=== PATIENT | female | born 1985 | race African-American/Black ===

== ENCOUNTER 2017-04-27 19:23 | Emergency (ER) | payer SELFPAY ==
[~2017-04-27] VITALS: Ht 162.6 cm; Wt 99.8 kg
[2017-04-27 19:40] VITALS: BP 107/47
--- NOTE | 2017-04-27 20:28 | Emergency Room Report ---
History of Present Illness General Chief Complaint: Overdose Source: Patient Present Illness HPI 32YOF BIBEMS with witnessed eating of marijuana edible. Cousin denies patient took ETOH, other drugs Denies other medical problems, medications Denies Tylenol, ASA HPI otherwise limited as patient is sedated from marijuana Allergies: Coded Allergies: No Known Allergies (Unverified , 04/27/17) Patient History Past Medical History: none Past Surgical History: none Pertinent Family History: none Social History: Denies: smoking, alcohol use, drug use Now: No Immunizations: UTD Reviewed Nursing Documentation: PMH: Agreed, PSxH: Agreed Nursing Documentation-PMH Past Medical History: No Stated History Review of Systems All Other Systems: negative except mentioned in HPI Physical Exam Vital Signs Date Time Temp Pulse Resp B/P (MAP) Pulse Ox O2 Delivery O2 Flow Rate FiO2 04/27/17 19:19 110 16 145/82 96 Room Air Sp02 EP Interpretation: reviewed, normal General Appearance: normal inspection, well appearing, no apparent distress, GCS 15, non-toxic Head: normocephalic, atraumatic Eyes: bilateral eye PERRL, bilateral eye EOMI ENT: normal ENT inspection, hearing grossly normal, normal voice Neck: normal inspection, full range of motion, supple, no bony tend Respiratory: normal inspection, lungs clear, normal breath sounds, no respiratory distress, no retraction, no wheezing Cardiovascular #1: regular rate, rhythm, no edema Gastrointestinal: normal inspection, normal bowel sounds, non tender, soft, no guarding, no hernia Genitourinary: no CVA tenderness Musculoskeletal: normal inspection, back normal, normal range of motion, Cheryl' s Sign negative Neurologic: normal inspection, alert, oriented x3, responsive, 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, motor strength/tone normal, speech normal Psychiatric: normal inspection, judgement/insight normal, memory normal, mood/ affect normal, no suicidal/homicidal ideation, no delusions Skin: normal inspection, normal color, no rash Lymphatic: normal inspection Medical Decision Making Diagnostic Impression: Primary Impression: Drug overdose Qualified Codes: T50.901A - Poisoning by unspecified drugs, medicaments and biological substances, accidental (unintentional), initial encounter Additional Impression: Marijuana intoxication Qualified Codes: F12.920 - Cannabis use, unspecified with intoxication, uncomplicated ER Course Marijuana intox after ingestion of edible VSS. Afebrile Airway patent Utox: + for MJ Reassured family DC with family Last Vital Signs Date Time Temp Pulse Resp B/P (MAP) Pulse Ox O2 Delivery O2 Flow Rate FiO2 04/27/17 19:19 110 16 145/82 96 Room Air Status: improved Disposition: HOME, SELF-CARE RODNEY MIGUEL M.D. Apr 27, 2017 20:28
[2017-04-27 21:20] VITALS: BP 107/47
== END 2017-04-27 22:45 | disposition home or self-care (01) ==
LOC: EDBD 19:23 → EMR 22:35
DX: T40.7X1A Poisoning by cannabis (derivatives), accidental (unintentional), initial encounter (principal); F12.920 Cannabis use, unspecified with intoxication, uncomplicated; Y92.9 Unspecified place or not applicable
CPT/HCPCS: 80300; 99283